=== PATIENT | female | born 1940 | race Caucasian/White ===

== ENCOUNTER → 2017-01-27 | Day surgery (SDC) | payer BC, OTHER ==
--- NOTE | 2017-01-28 16:08 | PATH ---
Cytology Non-Gynecological Report Patient Name: PAPO BRENNAN [facility]. Rec. #: [id number] /Age/Gender: 1940 (Age: 76) / F Account: [id number] Location: RADIOLOGY Taken: 01/27/2017 Received: 01/27/2017 Reported: 01/28/2017 Physicians: Serene Denise M.D. Specimen(s) Received RIGHT THYROID FNA Clinical History Right thyroid nodule, 2.37 x 1.09 x 0.64 cm Final Diagnosis THYROID GLAND, RIGHT LOBE, US GUIDED FINE NEEDLE ASPIRATION BIOPSY: SATISFACTORY FOR EVALUATION DUE TO THE PRESENCE OF COLLOID. ABUNDANT COLLOID PRESENT SUGGESTIVE OF COLLOID CYST (SEE COMMENT). Comment: The smears show abundant colloid. No follicular epithelial cells are seen. 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 Clinical and imaging correlations and follow up are suggested. Electronically Signed Rancho Puckett M.D. Gross Description Received are one air dried smears, one smears in 95% alcohol, and 20 cc of bloody fluid in formalin. One diff-quik stained slides, one Pap stained slides and one cell block are made.
== END | disposition home or self-care (01) ==
LOC: JRADIR 09:08
PROVIDERS: ATTEND Internal Medicine Endocrinology, Diabetes & Metabolism
PROC: 0GBH3ZX Excision of Right Thyroid Gland Lobe, Percutaneous Approach, Diagnostic (ICD-10-PCS; principal; 2017-01-27)
PROC: BG44ZZZ Ultrasonography of Thyroid Gland (ICD-10-PCS; 2017-01-27)
DX: E04.1 Nontoxic single thyroid nodule (principal)
CPT/HCPCS: 76942; 88173; 88305-TC

== ENCOUNTER 2017-07-16 10:04 | Day surgery (SDC) | payer BC, OTHER ==
[2017-07-16 10:49] VITALS: BMI 31.0
[2017-07-16 11:46] VITALS: TEMP 97.5
[2017-07-16 12:34] VITALS: BP 128/72; PULSE 70
--- NOTE | 2017-07-19 16:54 | PATH ---
Surgical Pathology Report Patient Name: PAPO BRENNAN [facility]. Rec. #: [id number] /Age/Gender: 1940 (Age: 77) / F Account: [id number] Location: [facility]-ENDOSCOPY Taken: 07/16/2017 Received: 07/16/2017 Reported: 07/19/2017 Physicians: James Ruano M.D. Specimen(s) Received A: BX GASTRIC ANTRUM B: BX GASTRIC BODY Clinical History Intestinal metaplasia of gastric mucosa History of gastric metaplasia, gastritis antrum, rule out metaplasia, gastritis gastric body, hiatal hernia Final Diagnosis A. STOMACH, ANTRUM, BIOPSY: GASTRIC ANTRUM MUCOSA WITH MODERATE CHRONIC GASTRITIS AND INTESTINAL METAPLASIA. NO DYSPLASIA IDENTIFIED. IMMUNOHISTOCHEMICAL STAIN FOR H. PYLORI IS NEGATIVE. B. STOMACH, BODY, BIOPSY: GASTRIC BODY MUCOSA WITH MODERATE CHRONIC GASTRITIS AND INTESTINAL METAPLASIA. IMMUNOHISTOCHEMICAL STAIN FOR H. PYLORI IS NEGATIVE Electronically Signed Jennifer Trevino M.D. Gross Description A. Received in formalin, labeled "biopsy gastric antrum" are 4 garcia, irregular portions of soft tissue ranging from 0.2-0.3 cm. in greatest dimension. The specimens are submitted in toto in one cassette. B. Received in formalin, labeled "biopsy gastric body" are 3 garcia, irregular portions of soft tissue ranging from 0.2-0.3 cm. in greatest dimension. The specimens are submitted in toto in one cassette. /07/16/201707/16/2017
== END 2017-07-16 12:35 | disposition home or self-care (01) ==
LOC: JASU-ENDO 10:04
PROVIDERS: ATTEND Internal Medicine Gastroenterology
PROC: 0DB68ZX Excision of Stomach, Via Natural or Artificial Opening Endoscopic, Diagnostic (ICD-10-PCS; principal; 2017-07-16 11:30)
DX: K44.9 Diaphragmatic hernia without obstruction or gangrene (principal)
CPT/HCPCS: 88305-TC; 88342-TC